=== PATIENT | male | born 1995 | race Caucasian/White ===

== ENCOUNTER 2018-06-01 21:48 | Emergency (ER) | payer MEDICAID ==
[~2018-06-01] VITALS: Ht 170.2 cm; Wt 90.7 kg
[2018-06-01 22:00] VITALS: BP_SYST 142
[2018-06-02 00:49] VITALS: BP_SYST 131
== END 2018-06-02 00:49 | disposition home or self-care (01) ==
LOC: SED 21:48
DX: S20.211A Contusion of right front wall of thorax, initial encounter (principal); J45.909 Unspecified asthma, uncomplicated; R03.0 Elevated blood-pressure reading, without diagnosis of hypertension; V00.141A Fall from scooter (nonmotorized), initial encounter; Y93.89 Activity, other specified; Y92.410 Unspecified street and highway as the place of occurrence of the external cause; Y99.8 Other external cause status
CPT/HCPCS: 71045; 71100; 99283

== ENCOUNTER 2022-10-20 11:05 | Emergency (ER) | payer MEDICAID ==
[~2022-10-20] VITALS: Ht 172.7 cm; Wt 93.4 kg
[2022-10-20 11:14] VITALS: BP_SYST 132; PULSE 93; RESP 18; TEMP 98.3; O2SAT 98
--- NOTE | 2022-10-20 11:55 | NUR ---
BROUGHT BACK TO [facility] CHAIR BY DR CUMMINGS AND EVALUATED. PLACED BACK TO WAITING ROOM.
[2022-10-20] MEDS ORDERED: DIPHTH,PERTUSS(ACELL),TET VAC 0.5 ML VIAL (Tdap) I.M. ONE (12:00)
[2022-10-20] MEDS ORDERED: IBUP-1971 PO (13:27)
[2022-10-20] MEDS ORDERED: IBUPROFEN 800 MG TABLET PO ONE (13:30)
[2022-10-20] MEDS ORDERED: BACITRACIN 1 GM OINT TP ONE (13:30)
[2022-10-20 14:12] VITALS: BP_SYST 110; PULSE 70; RESP 18; TEMP 97.8; O2SAT 98
--- NOTE | 2022-10-20 16:37 | NUR ---
Patient given written and verbal discharge instructions and verbalizes understanding. ER MD discussed with patient the results and treatment provided. Patient in stable condition. ID arm band removed. Patient educated on pain management and to follow up with PMD. Pain Scale . Opportunity for questions provided and answered. Medication side effect fact sheet provided.
== END 2022-10-20 16:37 | disposition home or self-care (01) ==
LOC: SED 11:05
DX: S43.401A Unspecified sprain of right shoulder joint, initial encounter (principal); S80.212A Abrasion, left knee, initial encounter; S80.211A Abrasion, right knee, initial encounter; S50.312A Abrasion of left elbow, initial encounter; S50.311A Abrasion of right elbow, initial encounter; J45.909 Unspecified asthma, uncomplicated; Z79.899 Other long term (current) drug therapy; V18.0XXA Pedal cycle driver injured in noncollision transport accident in nontraffic accident, initial encounter; Y93.89 Activity, other specified; Y92.89 Other specified places as the place of occurrence of the external cause; Y99.8 Other external cause status
CPT/HCPCS: 73030; 99283

== ENCOUNTER 2022-11-17 20:28 | Emergency (ER) | payer MEDICAID ==
[~2022-11-17] VITALS: Ht 170.2 cm; Wt 90.7 kg
[~2022-11-17 20:28] MED LIST: IBUP-1971 PO
[2022-11-17 20:47] VITALS: BP_SYST 121; PULSE 103; RESP 18; TEMP 99; O2SAT 98
[2022-11-17 21:38] LABS: BASOPHILS % (AUTO) 0.4 % (0.0-2.0); EOSINOPHILS # (AUTO) 0.2 K/uL (0.0-0.4); EOSINOPHILS % (AUTO) 2.2 % (0.0-4.0); HEMOGLOBIN 14.9 g/dL (14.0-18.0); LYMPHOCYTES # (AUTO) 1.8 K/uL (1.0-5.5); LYMPHOCYTES % (AUTO) 18.9 % (20.5-51.5); MEAN CORPUSCULAR HEMOGLOBIN 27 pg (27-31); MEAN CORPUSCULAR HGB CONC 32 % (32-36); MEAN CORPUSCULAR VOLUME 84 fL (79.0-98.0); MONOCYTES # (AUTO) 0.8 K/uL (0.0-1.0); MONOCYTES % (AUTO) 8.7 % (1.7-9.3); NEUTROPHILS # (AUTO) 6.8 K/uL (1.8-7.7); NEUTROPHILS % (AUTO) 69.8 % (40.0-70.0); PLATELET COUNT (AUTO) 225 K/uL (130-430); RED BLOOD CELL COUNT(AUTO) 5.47 MIL/uL (4.2-6.2); RED CELL DISTRIBUTION WIDTH 13.6 % (9.0-15.0); WHITE BLOOD COUNT (AUTO) 9.7 K/uL (4.8-10.8)
[2022-11-17 21:47] LABS: ACETONE, SERUM NEGATIVE (NEGATIVE)
[2022-11-17 21:48] LABS: ANION GAP 10 (5-15); CALCIUM 8.6 mg/dL (8.4-11.0); CARBON DIOXIDE 24 mmol/L (23-29); CHLORIDE 103 mmol/L (98-107); CREATININE 0.85 mg/dL (0.55-1.30); GFR AFRICAN AMERICAN 140 mL/min (>90); GLUCOSE 147 mg/dL (74-106); POTASSIUM 3.5 mmol/L (3.5-5.1); SODIUM SERUM 137 mmol/L (136-145); UREA NITROGEN, BLOOD 12 mg/dL (8-21)
[2022-11-17 21:55] LABS: ALANINE AMINOTRANSFERASE 46 U/L (12-78); ALBUMIN 3.6 g/dL (3.4-4.8); ASPARTATE AMINOTRANSFERASE 17 U/L (10-37); TOTAL BILIRUBIN 0.3 mg/dL (0.0-1.0); TOTAL PROTEIN, SERUM 6.6 g/dL (6.4-8.3)
[2022-11-17 22:27] VITALS: BP_SYST 110; PULSE 80; RESP 10; O2SAT 95
== END 2022-11-17 22:27 | disposition home or self-care (01) ==
LOC: SED 20:28
DX: R55 Syncope and collapse (principal); R51.9 Headache, unspecified; R42 Dizziness and giddiness; J45.909 Unspecified asthma, uncomplicated; Z79.899 Other long term (current) drug therapy
CPT/HCPCS: 36415; 70450-TC; 71045; 76376; 80053; 82009; 82962; 83605; 84484; 85025; 93005; 99285